=== PATIENT | female | born 1965 | race Caucasian/White ===

== ENCOUNTER 2021-03-31 14:35 | Inpatient (IN) | payer OTHER ==
[2021-03-31 15:56] LABS: BASO % 1.4 % (0-2.0); EOS % 3.2 % (0-4.5); HEMATOCRIT 29.5 % (32.4-45.2); HEMOGLOBIN 9.4 GM/dL (10.7-15.3); LYMPH % 21.1 % (8-40); MCH 29.4 pg (25.7-33.7); MCHC 31.9 g/dl (32.0-36.0); MEAN CELL VOLUME 92.3 fl (80-96); MEAN PLT VOLUME 7.3 fl (7.5-11.1); MONO % 3.9 % (3.8-10.2); NEUT % 70.4 % (42.8-82.8); PLATELET COUNT 457 10^3/uL (134-434); RDW 20.2 % (11.6-15.6); WHITE BLOOD COUNT 12.2 K/mm3 (4.0-10.0)
[2021-03-31] MEDS ORDERED: ENOXAPARIN NA (PORCINE) 100 MG/1 ML DISP.SYRIN SQ ONE ×2 (15:57→16:00)
[2021-03-31 16:02] LABS: PROTHROMBIN TIME (PATIENT) 12.3 SEC (9.7-13.0)
[2021-03-31 16:17] LABS: CALCIUM 8.1 mg/dL (8.5-10.1)
[2021-03-31 16:18] LABS: ALBUMIN 2.2 g/dl (3.4-5.0); BLOOD UREA NITROGEN 15.4 mg/dL (7-18)
[2021-03-31 16:21] LABS: CREATININE 0.5 mg/dL (0.55-1.3)
[2021-03-31 16:22] LABS: BILIRUBIN,TOTAL 0.3 mg/dL (0.2-1)
[2021-03-31 16:23] LABS: TOT PROT 5.5 g/dl (6.4-8.2)
[2021-03-31] MEDS: diphenhydrAMINE HCL 25 MG CAPSULE (FP) PO PRN (21:55)
[2021-03-31] MEDS: OXcarbazepine 300 MG TABLET (UD) PO SCH (21:55)
[2021-03-31] MEDS: rOPINIRole HCL 2 MG TABLET (FP) PO SCH (21:55)
[2021-03-31] MEDS: TOPIRAMATE 25 MG TABLET PO SCH (21:55)
[2021-03-31] MEDS: ACETAMINOPHEN 325 MG TABLET (FP) PO PRN (21:56)
[2021-03-31] MEDS: GABAPENTIN 300 MG CAPSULE PO SCH (21:56)
[2021-03-31 22:36] VITALS: BMI 38.0
[2021-04-01] MEDS: ENOXAPARIN NA (PORCINE) 100 MG/1 ML DISP.SYRIN SQ SCH ×2 (06:30→17:36)
[2021-04-01 07:05] LABS: HEMATOCRIT 27.6 % (32.4-45.2); HEMOGLOBIN 8.8 GM/dL (10.7-15.3); INR 1.04 (0.83-1.09); MCH 29.4 pg (25.7-33.7); MCHC 31.8 g/dl (32.0-36.0); MEAN CELL VOLUME 92.7 fl (80-96); MEAN PLT VOLUME 7.7 fl (7.5-11.1); PLATELET COUNT 459 10^3/uL (134-434); PROTHROMBIN TIME (PATIENT) 12.8 SEC (9.7-13.0); RBC 2.97 M/mm3 (3.60-5.2); RDW 19.6 % (11.6-15.6); WHITE BLOOD COUNT 9.1 K/mm3 (4.0-10.0)
[2021-04-01 07:20] LABS: CALCIUM 7.6 mg/dL (8.5-10.1)
[2021-04-01 07:21] LABS: ALBUMIN 1.8 g/dl (3.4-5.0); BLOOD UREA NITROGEN 14.2 mg/dL (7-18); MAGNESIUM 2.2 mg/dL (1.8-2.4)
[2021-04-01 07:24] LABS: CREATININE 0.4 mg/dL (0.55-1.3); PHOSPHOROUS 3.3 mg/dL (2.5-4.9)
[2021-04-01 07:25] LABS: BILIRUBIN,TOTAL 0.4 mg/dL (0.2-1)
[2021-04-01 07:26] LABS: TOT PROT 4.6 g/dl (6.4-8.2)
[2021-04-01] MEDS ORDERED: PT OWN MED DRAWER 7, Y5N ONE (09:22)
[2021-04-01] MEDS: GABAPENTIN 300 MG CAPSULE PO SCH ×2 (09:23→21:02)
[2021-04-01] MEDS: OXcarbazepine 300 MG TABLET (UD) PO SCH ×2 (09:24→21:01)
[2021-04-01] MEDS: TOPIRAMATE 25 MG TABLET PO SCH ×2 (09:24→09:31)
[2021-04-01] MEDS: rOPINIRole HCL 2 MG TABLET (FP) PO SCH ×2 (09:25→21:01)
[2021-04-01] MEDS ORDERED: WARFARIN NA 5 MG TABLET PO SCH (18:00)
[2021-04-01] MEDS: ACETAMINOPHEN 325 MG TABLET (FP) PO PRN (20:59)
[2021-04-01] MEDS: diphenhydrAMINE HCL 25 MG CAPSULE (FP) PO PRN (21:00)
[2021-04-02] MEDS: ENOXAPARIN NA (PORCINE) 100 MG/1 ML DISP.SYRIN SQ SCH (06:31)
[2021-04-02 06:33] VITALS: BP 124/57; PULSE 83; TEMP 98.5
[2021-04-02 08:03] LABS: BASO % 0.8 % (0-2.0); EOS % 2.3 % (0-4.5); HEMATOCRIT 28.4 % (32.4-45.2); HEMOGLOBIN 9.1 GM/dL (10.7-15.3); LYMPH % 14.4 % (8-40); MCH 29.3 pg (25.7-33.7); MCHC 32.1 g/dl (32.0-36.0); MEAN CELL VOLUME 91.3 fl (80-96); MEAN PLT VOLUME 7.5 fl (7.5-11.1); MONO % 3.6 % (3.8-10.2); NEUT % 78.9 % (42.8-82.8); PLATELET COUNT 474 10^3/uL (134-434); RBC 3.11 M/mm3 (3.60-5.2); WHITE BLOOD COUNT 8.6 K/mm3 (4.0-10.0)
[2021-04-02 08:40] LABS: CALCIUM 7.8 mg/dL (8.5-10.1)
[2021-04-02 08:41] LABS: ALBUMIN 1.8 g/dl (3.4-5.0); MAGNESIUM 2.2 mg/dL (1.8-2.4)
[2021-04-02 08:42] LABS: BILIRUBIN,TOTAL 0.3 mg/dL (0.2-1); TOT PROT 4.7 g/dl (6.4-8.2)
[2021-04-02 08:43] LABS: CREATININE 0.4 mg/dL (0.55-1.3)
[2021-04-02 08:44] LABS: PHOSPHOROUS 3.1 mg/dL (2.5-4.9)
[2021-04-02] MEDS ORDERED: TOPIRAMATE 25 MG TABLET PO SCH (10:00)
== END 2021-04-02 08:58 | disposition left against medical advice (07) | DRG 300 ==
LOC: JER 14:35 → JERBED 16:00 → J7W 21:23
PROVIDERS: ADMIT Student in an Organized Health Care Education/Training Program; ATTEND Internal Medicine
PROC: 3E013GC Introduction of Other Therapeutic Substance into Subcutaneous Tissue, Percutaneous Approach (ICD-10-PCS; principal; 2021-03-31)
DX: T81.72XA Complication of vein following a procedure, not elsewhere classified, initial encounter (principal); I82.413 Acute embolism and thrombosis of femoral vein, bilateral; F31.9 Bipolar disorder, unspecified; G25.81 Restless legs syndrome; D64.9 Anemia, unspecified; D72.829 Elevated white blood cell count, unspecified; Y83.9 Surgical procedure, unspecified as the cause of abnormal reaction of the patient, or of later complication, without mention of misadventure at the time of the procedure
CPT/HCPCS: 36415; 71046-TC-FY; 71250-TC; 80053; 82607; 82728; 82747; 82977; 83540; 83550; 83735; 84100; 84443; 85014; 85025; 85027; 85610; 85730; 93005; 93010; 93970-TC; 99285-25; C9803; U0003; U0005